=== PATIENT | female | born 1960 | race Caucasian/White ===

== ENCOUNTER → 2022-03-24 09:50 | Outpatient (CLI) | payer OTHER, SELFPAY ==
[2022-03-24 10:51] LABS: Alanine Aminotransferase 27 IU/L (<35); Albumin 4.2 g/dL (3.5-5.0); Albumin Globulin Ratio 1.4 (1.0-2.8); Alkaline Phosphatase 74 U/L (38-126); Aspartate Aminotransferase 26 IU/L (14-36); BUN Creatinine Ratio 25.7 (6-22); Bilirubin Total 0.7 mg/dL (0.2-1.3); Blood Urea Nitrogen 19 mg/dL (7-17); Calcium 9.2 mg/dL (8.4-10.2); Carbon Dioxide 31 mmol/L (22-32); Chloride 100 mmol/L (98-107); Estimated Glomerular Filt Rate > 60 mL/min (>60); Glucose 99 mg/dL (80-110); HEMOLYSIS < 15 (0-50); Potassium 3.9 mmol/L (3.4-5.1); Sodium 138 mmol/L (137-145); Total Protein 7.2 g/dL (6.3-8.2)
== END ==
PROVIDERS: Referring Provider Internal Medicine; Visit Provider Internal Medicine
DX: C50.411 Malignant neoplasm of upper-outer quadrant of right female breast (principal); Z17.0 Estrogen receptor positive status [ER+]
CPT/HCPCS: 36415; 80053

== ENCOUNTER 2023-05-04 07:59 | Day surgery (SDC) | payer OTHER, SELFPAY ==
[2023-05-04 08:32] VITALS: BP 154/83; PULSE 65; RESP 19; TEMP 36.3; O2SAT 98
--- NOTE | 2023-05-04 08:49 | PM.HP.1 ---
History of Present Illness History of Present Illness Date Patient Seen: 05/04/23 Time Patient Seen: 08:49 Chief complaint: Screening Colonoscopy Narrative: 62-year-old woman here for screening colonoscopy. Last colonoscopy 2012 in [facility], unremarkable. No family history of intestinal malignancy. No abdominal concerns today. [facility] Medical History Breast cancer (~2021) Surgical History H/O lumpectomy (~2021) History of surgery on left wrist (~2018) Social History Smoking Status: Former smoker alcohol intake: current Meds Home Medications and Allergies Home Medications Medication Instructions Recorded Confirmed Type Vitamin D3 1,000 mcg PO DAILY 05/04/23 05/04/23 History anastrozole 1 mg tablet 1 mg PO DAILY 05/04/23 05/04/23 History calcium carbonate 500 mg calcium 1,500 mg PO DAILY 05/04/23 05/04/23 History (1,250 mg) tablet lisinopril 10 mg tablet 10 mg PO DAILY 05/04/23 05/04/23 History lysine 500 mg tablet 500 mg PO DAILY 05/04/23 05/04/23 History omega-3 fatty acids 500 mg PO DAILY 05/04/23 05/04/23 History Allergies Allergy/AdvReac Type Severity Reaction Status Date / Time No Known Drug Allergies Allergy Verified 05/04/23 08:19 Exam Vital Signs (past 8 hours): - 05/04/23 08:32 Temperature 97.3 F L Pulse Rate 65 Respiratory Rate 19 Blood Pressure 154/83 H Pulse Oximetry 98 Oxygen Delivery Method Room Air Oxygen Delivery Method Room Air Narrative Exam Narrative: General adult woman alert oriented no acute distress Chest nonlabored respiration Extremities warm well perfused Assessment & Plan Assessment & Plan narrative: The patient requires colorectal screening and colonoscopy is recommended. Technical details were discussed. Risks, benefits, alternatives explained. Risks including but not limited to myocardial infarction, aspiration, bleeding, pain, missed lesion, incomplete examination, need for further radiographic studies, colonic perforation, and need for major abdominal surgery were discussed. All questions were answered to their satisfaction, and they are in agreement with this plan.
--- NOTE | 2023-05-04 08:54 | P.OP.COLON_ITS ---
Operative Date/Time/Diagnoses Date of procedure: 05/04/23 Time of procedure: 08:54 Pre-op diagnosis: Colorectal screening Procedure & Clinicians Study performed: Colonoscopy Same procedure as scheduled: Yes Indications: Colorectal screening Surgeon: Brent Villeda Procedure Notes Procedure in detail: The history and physical was performed/updated and the patient is ASA class is 2. The procedure was discussed in detail with the patient. Potential risks complications including infection, bleeding, missed diagnosis, perforation, need for surgery, and were explained. Their questions were answered and informed consent was obtained. Patient was brought to the procedure room and placed standard monitoring equipment. The patient's vital signs were monitored continuously throughout the entire procedure. Prior to starting time-out was performed. The patient was placed in the left lateral recumbent position. Procedural sedation was administered by anesthesia. Examination began with a thorough inspection of the perianal area there was no evidence of fissures, fistulae, external hemorrhoids or cutaneous malignancy. The colonoscopy scope was then placed into the anal canal and was advanced to the cecum, which was identified by the ileocecal valve , the appendiceal orifice and the confluence of the taenia. The scope was then slowly withdrawn examining colon thoroughly in all directions, irrigating it of any residual stool. The scope was retroflexed within the rectum The patient tolerated the procedure well. They will be discharged once criteria are met. The prep was of good/excellent quality. The withdrawl time was 7 minutes. FINDINGS * Normal colonoscopy. No masses, polyps or inflammation Specimen(s): none sent Complications: none Impression: Normal colonoscopy Post-procedure Recommendations: Colonoscopy in 10 years Disposition: same day surgery
[2023-05-04 09:17] VITALS: BP 107/66; PULSE 58; RESP 20; TEMP 37.1; O2SAT 100
[2023-05-04 09:22] VITALS: BP 103/65; PULSE 56; RESP 20; TEMP 37.1; O2SAT 100
[2023-05-04 09:27] VITALS: BP 112/71; PULSE 59; RESP 16; TEMP 37.1; O2SAT 100
[2023-05-04 09:33] VITALS: BP 115/70; PULSE 60; RESP 15; TEMP 37; O2SAT 99
== END 2023-05-04 09:44 | disposition home or self-care (01) ==
PROVIDERS: PCP Internal Medicine; Referring Provider Surgery; Visit Provider Surgery
PROC: 0DJD8ZZ Inspection of Lower Intestinal Tract, Via Natural or Artificial Opening Endoscopic (ICD-10-PCS; CPT 45378; principal; 2023-05-04 08:45)
DX: Z12.11 Encounter for screening for malignant neoplasm of colon (principal)
CPT/HCPCS: 45378; J2250; J2704

== ENCOUNTER 2024-01-13 12:05 | Emergency (ER) | payer OTHER, SELFPAY ==
[2024-01-13 12:05] VITALS: BP 157/88; PULSE 79; RESP 16; TEMP 36.8; O2SAT 98; BMI 20.5
[2024-01-13 12:11] VITALS: PULSE 78; O2SAT 99
--- NOTE | 2024-01-13 12:15 | DI.RAD.S_ITS ---
PROCEDURE: XR CHEST 2V INDICATIONS: injury/felt pop TECHNIQUE: 2 views of the chest were acquired. COMPARISON: None. FINDINGS: Surgical changes and devices: Right breast surgical clips Lungs and pleura: Lungs are clear. No pleural effusions or pneumothorax. Mediastinum: Mediastinal contours are normal. Heart size is normal. Bones and chest wall: Diffuse osseous demineralization. No suspicious bony abnormalities. Soft tissues appear unremarkable. IMPRESSION: No acute cardiothoracic process. No acute, displaced rib fractures. Dictated by: Marc Holland M.D. on 01/13/2024 at 13:02 Approved by: Marc Holland M.D. on 01/13/2024 at 13:04
--- NOTE | 2024-01-13 12:23 | PC.NURSE ---
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 Child hit pt's center of chest with his head while flailing 2-3 times. On the 2nd or third contact pt states she heard and felt a loud pop in her chest. Pain 6/10 with pain with deep inspiration and SOB. Pt does not appear in acute distress. She denies the child hitting her in the head. Denies headache. Has some abrasions/scratches to bilateral hands from the child with controlled bleeding. She reports tetanus is up to date. Event occurred at 11:15
[2024-01-13 12:30] VITALS: PULSE 75
--- NOTE | 2024-01-13 12:31 | ED_ITS ---
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 No shortness of breath. No skin changes or abrasions. No other injuries. Related Data Home Medications Medication Instructions Recorded Confirmed Vitamin D3 1,000 mcg PO DAILY 05/04/23 05/04/23 anastrozole 1 mg tablet 1 mg PO DAILY 05/04/23 05/04/23 calcium carbonate 1,500 mg PO DAILY 05/04/23 05/04/23 lisinopril 10 mg tablet 10 mg PO DAILY 05/04/23 05/04/23 lysine 500 mg tablet 500 mg PO DAILY 05/04/23 05/04/23 omega-3 fatty acids 500 mg PO DAILY 05/04/23 05/04/23 Allergies Allergy/AdvReac Type Severity Reaction Status Date / Time No Known Drug Allergies Allergy Verified 05/04/23 08:19 Review of Systems Review of Systems Narrative: see HPI Patient History Medical History Breast cancer (~2021) Surgical History H/O lumpectomy (~2021) History of surgery on left wrist (~2018) Social History Smoking Status: Former smoker alcohol intake: current Smoking Status: Former smoker alcohol intake frequency: 0-2 drinks per day Substance Use Type: does not use Exam Narrative Exam Narrative: GENERAL: Well-developed patient, in mild distress. HEAD: Atraumatic. Normocephalic. EYES: Pupils equal round and reactive. Extraocular motions intact. No scleral icterus. No injection or drainage. ENT: Nose without bleeding, purulent drainage. Throat without erythema, tonsillar hypertrophy or exudate. Airway patent. NECK: Trachea midline. Non tender CARDIOVASCULAR: Regular rate and rhythm without murmurs, gallops, or rubs. RESPIRATORY: Mild tenderness to mid lower sternum, no abrasions or erythema or lacerations, no crepitance. No tenderness to right anterior or left anterior chest wall. No pain or symptoms with movements of upper extremities. Clear to auscultation. Breath sounds equal bilaterally. No wheezes, rales, or rhonchi. GASTROINTESTINAL: Abdomen soft, non-tender, nondistended. EXTREMITIES: No edema or joint tenderness. BACK: Nontender without deformity or crepitance. No flank tenderness. NEURO: AOx3. Motor functions grossly nonfocal SKIN: No rash or erythema of visible areas Initial Vital Signs Initial Vital Signs: Vital Signs Temperature 98.3 F 01/13/24 12:05 Pulse Rate 79 01/13/24 12:05 Respiratory Rate 16 01/13/24 12:05 Blood Pressure 157/88 H 01/13/24 12:05 Pulse Oximetry 98 01/13/24 12:05 Oxygen Delivery Method Room Air 01/13/24 12:05 Course Orders Ordered: ED Orders 01/13/24 12:15 XR chest 2V Stat Vital Signs Vital signs: Vital Signs - 8 hr 01/13/24 12:05 01/13/24 12:11 01/13/24 12:30 Temperature 98.3 F Pulse Rate 79 78 75 Respiratory Rate 16 Blood Pressure 157/88 H Pulse Oximetry 98 99 Oxygen Delivery Method Room Air Room Air 01/13/24 13:23 Temperature Pulse Rate 75 Respiratory Rate Blood Pressure 136/82 Pulse Oximetry 100 Oxygen Delivery Method Room Air MDM - Chest Pain Imaging Data Chest x-ray: Radiologist's Impression: [address] [address] XRay Report Signed Patient: Kaylan Cedillo MR#: [id number] : 1960 Acct:[id number] Age/Sex: 63 / F Date of Service: 01/13/24 Loc: ED Accession Number: [id number] Procedure: XR chest 2V Ordering Provider: Ghulam Jhaveri MD PROCEDURE: XR CHEST 2V INDICATIONS: injury/felt pop TECHNIQUE: 2 views of the chest were acquired. COMPARISON: None. FINDINGS: Surgical changes and devices: Right breast surgical clips Lungs and pleura: Lungs are clear. No pleural effusions or pneumothorax. Mediastinum: Mediastinal contours are normal. Heart size is normal. Bones and chest wall: Diffuse osseous demineralization. No suspicious bony abnormalities. Soft tissues appear unremarkable. IMPRESSION: No acute cardiothoracic process. No acute, displaced rib fractures. Dictated by: Marc Holland M.D. on 01/13/2024 at 13:02 Approved by: Marc Holland M.D. 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 Some tenderness on examination, no bruising or abrasion changes to the chest wall. No crepitance. Screening chest x-ray ordered. Chest x-ray unremarkable, no obvious injury patterns two-view. See radiology report Patient advised to take Tylenol and or Motrin for discomfort, seems to have minor injury, no EKG and blood work or advanced imaging indicated at this time. Some increased risk of complications if she has discomfort that precludes her from breathing deeply, if she might develop pneumonia. Encouraged to take pain medications, breathe deeply, recheck if symptoms persist in the next few days. Return precautions, stable, discharged. 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 No shortness of breath her respiratory distress. Minimal tenderness without skin changes or bruising or abrasions on examination, no crepitance to examination. Lungs clear, normal respiratory rate, good oxygenation on room air. Chest x-ray screening was negative for any injury patterns, see radiology report, copy of the report provided. It would be prudent to consider some pain medication strategy such as Tylenol and or Motrin to control pain enough to deep breathe, so that you do not develop localized lung atelectasis due to the chest wall pain, which can be a risk factor for progression to pneumonia after chest wall injury. You are going on vacation to [place], hope you have fun. While on vacation consider recheck at nearest emergency department if you have increasing shortness of breath or trouble breathing or any concerns. Prescriptions: No Action anastrozole 1 mg tablet 1 mg PO DAILY calcium carbonate 500 mg calcium (1,250 mg) Tablet 1,500 mg PO DAILY lisinopril 10 mg tablet 10 mg PO DAILY lysine 500 mg Tablet 500 mg PO DAILY omega-3 fatty acids Capsule 500 mg PO DAILY Vitamin D3 1,000 mcg PO DAILY Referrals: Tony Castaneda MD [Primary Care Provider] - Stand Alone Forms: Patient Portal/API
[2024-01-13 13:23] VITALS: BP 136/82; PULSE 75; O2SAT 100
== END 2024-01-13 13:23 | disposition home or self-care (01) ==
PROVIDERS: Emergency Provider Emergency Medicine; PCP Internal Medicine
DX: S20.214A Contusion of middle front wall of thorax, initial encounter (principal); W51.XXXA Accidental striking against or bumped into by another person, initial encounter
CPT/HCPCS: 71046; 99283

== ENCOUNTER → 2024-04-04 09:38 | Outpatient (CLI) | payer OTHER, SELFPAY ==
[2024-04-04 11:17] LABS: Cholesterol 213 mg/dL (140-199); HDL Cholesterol 92 mg/dL (40-60); LDL Cholesterol Calculated 108 mg/dL (<100); Triglycerides 66 mg/dL (35-150)
== END ==
LOC: LAB 09:40
PROVIDERS: PCP Internal Medicine; Referring Provider Internal Medicine; Visit Provider Internal Medicine
DX: I10 Essential (primary) hypertension (principal)
CPT/HCPCS: 36415; 80061

== ENCOUNTER 2024-10-30 08:13 | Day surgery (SDC) | payer OTHER, MEDICARE, SELFPAY ==
--- NOTE | 2024-10-30 | PATH_ITS ---
[facility] Accession Number: [id number] No. of containers..01 Tissue . 01 Material submitted: . gastrointestinal site - GASTRIC BIOPSY . 01 Diagnosis: GASTRIC BIOPSY: Gastric oxyntic mucosa with no diagnostic alterations. No Helicobacter organisms identified on H/E stain. No intestinal metaplasia, dysplasia, or malignancy identified. [facility] 11/06/2024 1222 Local . 01 Electronically signed: . Michael Gaspar MD, Pathologist NPI- [id number] . 01 Gross description: . Received in formalin with two identifiers and gastric biopsy, is a single soft scherer tissue fragment 0.3 cm in greatest dimension. Entirely submitted in cassette A1. ([id number]) /BHARATHI 11/06/2024 1222 Local . 01 Pathologist provided ICD-10: K21.9 . 01 CPT . 045899 Specimen Comment: A courtesy copy of this report has been sent to [phone] Performed at: [address] [facility] [address], [place], [place] [id number] MD Michael Gaspar MD Phone: [phone]
[2024-10-30 08:50] VITALS: BP 146/74; PULSE 62; RESP 12; TEMP 36.6; O2SAT 99
--- NOTE | 2024-10-30 09:03 | PM.HP.IH.1 ---
History of Present Illness History of Present Illness Date Patient Seen: 10/30/24 Chief complaint: EGD w/poss bx Narrative: History of GE reflux with epigastric pain and epigastric pain with palpation Currently not on medications. [facility] Medical History Breast cancer (~2021) Surgical History H/O lumpectomy (~2021) History of surgery on left wrist (~2018) Social History Smoking Status: Never smoker alcohol intake: current Meds Home Medications and Allergies Home Medications ?Medication ?Instructions ?Recorded ?Confirmed ?Type Vitamin D3 1,000 mcg PO DAILY 05/04/23 05/04/23 History anastrozole 1 mg tablet 1 mg PO DAILY 05/04/23 10/30/24 History calcium carbonate 1,500 mg PO DAILY 05/04/23 05/04/23 History lisinopril 10 mg tablet 10 mg PO DAILY 05/04/23 10/30/24 History lysine 500 mg tablet 500 mg PO DAILY 05/04/23 05/04/23 History omega-3 fatty acids 500 mg PO DAILY 05/04/23 05/04/23 History Allergies Allergy/AdvReac Type Severity Reaction Status Date / Time No Known Drug Allergies Allergy Verified 10/30/24 08:42 Exam Vital Signs (past 8 hours): - 10/30/24 08:50 Temperature 97.8 F Pulse Rate 62 Respiratory Rate 12 Blood Pressure 146/74 H Pulse Oximetry 99 Oxygen Delivery Method Room Air Oxygen Delivery Method Room Air Narrative Exam Narrative: Oropharynx free of lesion Assessment & Plan Assessment & Plan narrative: GE reflux and epigastric pain and tenderness rule out peptic disease. Risks, benefits, alternatives have been explained. Time-Based Coding :: [TOTAL MINUTES] spent with patient and on the chart (including review of chart, obtaining history, exam, reviewing outside data, placing orders, documenting exam and treatment plan, and counseling patient) on [DATE]. [employer] Supervisor Document charge(s): No
--- NOTE | 2024-10-30 09:04 | PM.OP.EGD ---
Operative Date/Time/Diagnoses Date of procedure: 10/30/24 Time of procedure: 10:14 Pre-op diagnosis: See indication and findings Post-op diagnosis: same Procedure & Clinicians Study performed: EGD Same procedure(s) as scheduled: Yes Indications: Epigastric pain and GE reflux Surgeon: Viviana Beckford Anesthesia Type: Other Procedure Notes Procedure in detail: After informed consent was obtained the patient was placed in left lateral decubitus position. The video upper scope was placed into the oropharynx and with the patient's help swallowed into the esophagus. The esophagus stomach and duodenal were carefully examined. On withdrawal, retroflexed view the GE junction was performed. The scope was removed. The patient tolerated procedure well. Blood loss none Complications none Sedation mac Findings 1. Normal esophagus 2. Normal squamocolumnar junction 3. Scattered erythema in the stomach biopsies taken to rule out Helicobacter 4. Normal duodenal bulb and sweep Patient should use OTC famotidine on a as needed basis. No follow-up upper endoscopy is recommended.
[2024-10-30 09:45] VITALS: BP 101/58; PULSE 51; RESP 19; TEMP 36.2; O2SAT 98
[2024-10-30 09:50] VITALS: BP 102/57; PULSE 49; RESP 18; O2SAT 98
[2024-10-30 09:55] VITALS: BP 121/59; PULSE 54; RESP 21; TEMP 36.2; O2SAT 100
== END 2024-10-30 10:28 | disposition home or self-care (01) ==
PROVIDERS: PCP Internal Medicine; Referring Provider Internal Medicine; Visit Provider Internal Medicine Gastroenterology
PROC: 0DJ08ZZ Inspection of Upper Intestinal Tract, Via Natural or Artificial Opening Endoscopic (ICD-10-PCS; CPT 43239; principal; 2024-10-30 09:30)
DX: K21.9 Gastro-esophageal reflux disease without esophagitis (principal); R10.13 Epigastric pain
CPT/HCPCS: 43239; J2704

== ENCOUNTER 2024-10-31 21:01 | Emergency (ER) | payer OTHER, MEDICARE, SELFPAY ==
[2024-10-31 21:13] VITALS: BP 143/73; PULSE 67; RESP 16; TEMP 36.9; O2SAT 98; BMI 21.4
--- NOTE | 2024-10-31 23:21 | ED.WOUNDLAC ---
HPI - Wound/Laceration General Chief Complaint: Wound/Laceration Stated Complaint: Lt hand laceration Time Seen by Provider: 10/31/24 23:16 Source: patient Mode of arrival: Ambulatory History of Present Illness HPI narrative: 64-year-old female patient with a history of hypertension and breast cancer who sustained a laceration to the lateral left hand on a shot glass that was broken prior to coming to the ER. Due for tetanus. No other injury. Related Data Home Medications ?Medication ?Instructions ?Recorded ?Confirmed Vitamin D3 1,000 mcg PO DAILY 05/04/23 05/04/23 anastrozole 1 mg tablet 1 mg PO DAILY 05/04/23 10/30/24 calcium carbonate 1,500 mg PO DAILY 05/04/23 05/04/23 lisinopril 10 mg tablet 10 mg PO DAILY 05/04/23 10/30/24 lysine 500 mg tablet 500 mg PO DAILY 05/04/23 05/04/23 omega-3 fatty acids 500 mg PO DAILY 05/04/23 05/04/23 Allergies Allergy/AdvReac Type Severity Reaction Status Date / Time No Known Drug Allergies Allergy Verified 10/30/24 08:42 Review of Systems Review of Systems ROS Unobtainable: All systems reviewed & are unremarkable except as noted in HPI and below Patient History Medical History Breast cancer (~2021) Surgical History H/O lumpectomy (~2021) History of surgery on left wrist (~2018) Social History Smoking Status: Never smoker alcohol intake: current Smoking Status: Never smoker alcohol intake frequency: 0-2 drinks per day Exam Initial Vital Signs Initial Vital Signs: Vital Signs Temperature 98.4 F 10/31/24 21:13 Pulse Rate 67 10/31/24 21:13 Respiratory Rate 16 10/31/24 21:13 Blood Pressure 143/73 H 10/31/24 21:13 Pulse Oximetry 98 10/31/24 21:13 Oxygen Delivery Method Room Air 10/31/24 21:13 Const General: cooperative, healthy appearing, comfortable, well developed and No in distress Resp Effort & Inspection: normal respiratory effort Extrem General: normal exam except as noted Other: Lateral left hand has a 2.6 cm linear laceration. Tendon function and neurovascular intact. Procedures Laceration Repair Laceration 1: Site: hand Side (If applicable): left Size (cm): 3.2 Description: linear Depth: simple, single layer Local Anesthetic: lidocaine 1% and with epi Amount of anesthesia used (mL): 3 Pre-repair: wound explored, irrigated extensively and deep structures intact Skin layer closed with: nylon Skin layer suture size: 5-0 Number of sutures: 9 Technique: running Course Orders Ordered: Discontinued Medications Diphtheria/Tetanus/Acell Pertussis (Tet,Diph,Pertuss(Acell),Vac/Pf 0.5 Ml Syringe) 0.5 ml IM .ONCE ONE Stop: 10/31/24 23:23 Last Admin: 10/31/24 23:29 Dose: 0.5 ml Lidocaine/Epinephrine (Lidocaine 1% W/Epi 10ml) 4 ml INJ INTRA-OP ONE Stop: 10/31/24 23:21 Last Admin: 10/31/24 23:29 Dose: 4 ml Vital Signs Vital signs: Vital Signs - 8 hr 10/31/24 21:13 10/31/24 23:56 Temperature 98.4 F Pulse Rate 67 97 H Respiratory Rate 16 16 Blood Pressure 143/73 H 149/81 H Pulse Oximetry 98 97 Oxygen Delivery Method Room Air Room Air MDM - Wound/Laceration MDM Narrative Medical decision making narrative: Suture repair of laceration of the left hand with no complications. Function intact. Patient given instructions on keeping the wound clean and wound care. Follow up for suture removal in 8 days Discharge Plan Departure Patient Disposition: Home Clinical Impression: Laceration Instructions: DI for Laceration Repair Activity Restrictions/Additional Instructions: Keep the wound dry for 24 hours. After that no submerging but may shower and have water run over it in the sink. Keep the wound clean. Follow up for suture removal in 8 days with your doctor or the ER. Prescriptions: No Action anastrozole 1 mg tablet 1 mg PO DAILY calcium carbonate 500 mg calcium (1,250 mg) Tablet 1,500 mg PO DAILY lisinopril 10 mg tablet 10 mg PO DAILY lysine 500 mg Tablet 500 mg PO DAILY omega-3 fatty acids Capsule 500 mg PO DAILY Vitamin D3 1,000 mcg PO DAILY Referrals: Tony Castaneda MD [Primary Care Provider, Internal Medicine] Stand Alone Forms: Patient Portal/API
[2024-10-31] MEDS: TET,DIPH,PERTUSS(ACELL),VAC/PF 0.5 ML SYRINGE IM (23:29)
[2024-10-31] MEDS: LIDOCAINE 1% W/EPI 10ML 4 ML INJ (23:29)
[2024-10-31 23:56] VITALS: BP 149/81; PULSE 97; RESP 16; O2SAT 97
== END 2024-10-31 23:56 | disposition home or self-care (01) ==
PROVIDERS: Emergency Provider Emergency Medicine; PCP Internal Medicine
DX: S61.412A Laceration without foreign body of left hand, initial encounter (principal); W25.XXXA Contact with sharp glass, initial encounter; Z23 Encounter for immunization
CPT/HCPCS: 12002; 90471; 99283; 90715